=== PATIENT | female | born 1995 | race Caucasian/White ===

== ENCOUNTER 2018-10-08 12:33 | Emergency (ER) | payer SELFPAY ==
[~2018-10-08] VITALS: Ht 165.1 cm; Wt 67.1 kg
[2018-10-08 13:49] VITALS: BP 127/78
[2018-10-08] MEDS ORDERED: diphenhydrAMINE HCL 25 MG CAPSULE ONE (14:23)
[2018-10-08] MEDS: diphenhydrAMINE HCL ELIX 25 MG/10 ML UDC PO ONE (14:26)
--- NOTE | 2018-10-08 14:37 | NUR ---
Patient discharged to home in stable condition. Written and verbal after care instructions given. Patient verbalizes understanding of instruction.
== END 2018-10-08 14:39 | disposition home or self-care (01) ==
LOC: ER 12:33
DX: B08.4 Enteroviral vesicular stomatitis with exanthem (principal); L03.116 Cellulitis of left lower limb; L03.115 Cellulitis of right lower limb; J39.1 Other abscess of pharynx
CPT/HCPCS: 99283; Q0163